=== PATIENT | male | born 1945 | race Caucasian/White ===

== ENCOUNTER 2019-05-04 10:32 | Inpatient (IN) | payer MEDICARE ==
[~2019-05-04] VITALS: Ht 185.4 cm; Wt 59.6 kg
[2019-05-04] MEDS ORDERED: GLUCOPHAGE500 MG PO (10:39)
[2019-05-04] MEDS ORDERED: LISINOPRIL10 MG PO (10:39)
[2019-05-04 11:01] VITALS: BP 148/69
[2019-05-04 11:10] LABS: ANION GAP 6.3 mmol/L (8-16); CALCIUM 7.5 mg/dL (8.5-10.1); CARBON DIOXIDE 29.3 mmol/L (21.0-32.0); CREATININE - SERUM 1.1 mg/dL (0.6-1.3); HEMATOCRIT 30.5 % (42.0-54.0); HEMOGLOBIN 9.7 g/dL (13.5-17.5); MCH 28.1 pg (26.0-34.0); MCHC 31.8 g/dL (31.0-37.0); MCV 88.4 fL (80.0-100.0); MEAN PLATELET VOLUME 9.3 fL (7.4-10.4); NEUTROPHILS 70.6 % (40-80); PLATELET COUNT 405 10x3/uL (130-400); POTASSIUM - SERUM 4.6 mmol/L (3.5-5.1); RBC 3.45 10x6/uL (4.20-6.10); RDW 14.4 % (11.5-14.5); WBC 8.8 10x3/uL (4.8-10.8)
[2019-05-04 11:21] LABS: BILIRUBIN NEGATIVE (NEGATIVE); GLUCOSE NEGATIVE (NEGATIVE); KETONE NEGATIVE (NEGATIVE); NITRITE NEGATIVE (NEGATIVE); UROBILINOGEN NORMAL (NORMAL)
[2019-05-04 11:24] LABS: BILIRUBIN - TOTAL 0.2 mg/dL (0.2-1.3); PROTEIN - SERUM 5.2 g/dL (6.4-8.2)
--- NOTE | 2019-05-04 11:39 | NUR ---
BLADDER SCAN = 63ML
[2019-05-04 12:13] VITALS: BP 131/80
[2019-05-04 13:12] VITALS: BP 140/72
[2019-05-04 15:37] VITALS: BP 145/81
--- NOTE | 2019-05-04 17:30 | NUR ---
REPORT TO JEAN PIERRE MARTINEZ.
[2019-05-04 18:36] VITALS: BP 120/70
--- NOTE | 2019-05-04 18:37 | NUR ---
PT TO ROOM FROM ER VIA WHEELCHAIR. ABLE TO STAND AND GET IN BED. ALREADY AMBULATED TO BATHROOM. BAG OF BELONGINGS IN LAP. DINNER TRAY SUPPOSED TO BE COMING.
[2019-05-04 19:26] VITALS: BMI 20.2
--- NOTE | 2019-05-04 19:30 | NUR ---
PT SITTING UP ON SIDE OF BED UPON ENTERING, AOX4. HARD OF HEARING. UPSET THAT DINNER TRAY NEVER CAME " PROMISED". GAVE PT SANDWICH TRAY, PUDDING, AND COLA. IV RIGHT FA SL, FLUSHES EASILY. 2+ BLE EDEMA AND SCROTUM EDEMATOUS. PT ENCOURAGED TO LAY FLLAT WITH SCROTUM ELEVATED. VERBALIZED UNDERSTANDING. UP AD ZHENG WITHOUT DIFFICULTY TO BATHROOM. DENIES OTHER NEEDS AT THIS TIME. CL IN REACH, WILL CTM
[2019-05-04 20:14] VITALS: BP 109/75
[2019-05-05 00:08] VITALS: BP 122/66
[2019-05-05 03:52] VITALS: BP 134/72
[2019-05-05 05:51] LABS: HEMATOCRIT 27.2 % (42.0-54.0); HEMOGLOBIN 8.7 g/dL (13.5-17.5); LYMPHOCYTES 26.1 % (15-50); MCH 28.2 pg (26.0-34.0); MEAN PLATELET VOLUME 9.5 fL (7.4-10.4); NEUTROPHILS 61.9 % (40-80); PLATELET COUNT 350 10x3/uL (130-400); RBC 3.09 10x6/uL (4.20-6.10); RDW 14.2 % (11.5-14.5)
[2019-05-05 05:53] LABS: WBC 5.4 10x3/uL (4.8-10.8)
[2019-05-05 06:04] LABS: INR 1.82 (0.85-1.17); PROTIME 20.9 SECONDS (11.6-15.0)
[2019-05-05 06:16] LABS: % SATURATION 26 % (15-55); IRON 25 ug/dl (35-150); TOTAL IRON BIND CAPACITY 93 ug/dl (260-445); UNSAT IRON BIND CAPACITY 68 ug/dl (150-375)
[2019-05-05 06:38] LABS: ALBUMIN 0.8 g/dL (3.4-5.0); ALKALINE PHOSPHATASE 147 U/L (30-120); ALT (SGPT) 24 U/L (10-68); BILIRUBIN - TOTAL 0.03 mg/dL (0.2-1.3); CALC OSMOLALITY 280 mosm/kg (275-300); CALCIUM 7.2 mg/dL (8.5-10.1); CARBON DIOXIDE 29.7 mmol/L (21.0-32.0); CHLORIDE - SERUM 106 mmol/L (98-107); CKMB 4.6 U/L (0.0-3.6); CREATINE KINASE 172 UL (21-232); CREATININE - SERUM 1.3 mg/dL (0.6-1.3); FERRITIN 18 ng/mL (3-244); GLUCOSE 132 mg/dL (74-106); MAGNESIUM - SERUM 1.3 mg/dL (1.8-2.4); PHOSPHOROUS 3.8 mg/dL (2.5-4.9); POTASSIUM - SERUM 4.2 mmol/L (3.5-5.1); PRO BNP 1071 pg/mL (0-125); PROTEIN - SERUM 4.2 g/dL (6.4-8.2); SODIUM 139 mmol/L (136-145); TROPONIN-I < 0.017 ng/mL (0.000-0.060); UREA NITROGEN 16 mg/dL (7-18); eGFR NON AFRICAN AMERICAN 58 mL/min (90-120)
--- NOTE | 2019-05-05 07:42 | NUR ---
PT RECEIVED AWAKE IN BED. ASKING IF HE IS GOING TO GET TO GO HOME TODAY. CRANKY ABOUT EVERYTHING FROM GETTING EXTRA MAG PILLS TO NO BREAKFAST YET. STATES HE IS FEELING BETTER HOWEVER.
[2019-05-05 08:08] VITALS: BP 128/65
[2019-05-05 09:40] VITALS: Ht 185.4 cm; Wt 59.6 kg
--- NOTE | 2019-05-05 11:33 | MORECARE ---
CASE MANAGEMENT DISCHARGE SUMMARY PATIENT: SHAYAN QUINTANA UNIT: [id number] ADM DATE: 05/04/19 AGE: 73 : 47 SEX: M ROOM/BED: D.2101 AUTHOR: VANE BOTELLO PHYSICIAN: REFERRING PHYSICIAN: MELONIE TODD MD DATE OF SERVICE: 05/05/19 Discharge Plan Patient Name: SHAYAN QUINTANA [facility] : 1945 Planned Disposition: Home Anticipated Discharge Date: Discharge Date: Expected LOS: Initial Reviewer: [email or web address] Initial Review Date: 05/05/2019 Generated: 05/05/19 12:32 pm Patient Name: SHAYAN QUINTANA Page [id number] at 1133 All edits/amendments must be made on the electronic document DICTATION DATE: 05/05/19 113 SPECIAL EVENTS COORDINATOR: ROSENDO 05/05/19 1132 RPT#: [id number] DC DATE: STATUS: ADM IN [facility] [address] [place] [address] END OF REPORT
--- NOTE | 2019-05-05 11:42 | MORECARE ---
CASE MANAGEMENT DISCHARGE SUMMARY PATIENT: SHAYAN QUINTANA UNIT: [id number] ADM DATE: 05/04/19 AGE: 73 : 47 SEX: M ROOM/BED: D.5319 AUTHOR: AYANDOC PHYSICIAN: REFERRING PHYSICIAN: MELONIE TODD MD DATE OF SERVICE: 05/05/19 Discharge Plan Patient Name: SHAYAN QUINTANA Facility: [facility]:[place] : 1945 Planned Disposition: Home Anticipated Discharge Date: Discharge Date: Expected LOS: Initial Reviewer: [email or web address] Initial Review Date: 05/05/2019 Generated: 05/05/19 12:41 pm Comments DCP- Discharge Planning Updated by [email or web address]: Lynda Souza on 05/05/19 10:[address] Patient Name: SHAYAN QUINTANA Admission Status: ER Accout number: [id number] Admission Date: 05-04-2019 : 1945 Admission Diagnosis: Attending: MELONIE TODD Current LOS: 1 Anticipated DC Date: Planned Disposition: Home Primary Insurance: MEDICARE A & B Discharge Planning Comments: CM met with patient to complete initial dc planning assessment. CM educated patient on the CM role and verbal consent given by patient to complete assessment. Patient lives at home alone, his address verified on face sheet. At discharge patient plans to return and feels this is a safe discharge. CM discussed availability of home health, rehab services, and medical equipment. Patient denied known discharge needs at this time. States he uses the [facility] clinic for his doctor and medications. States "[facility], and I said n, I was not driving to [place]." States he will use his Medicare benefits for this hospitalization. States he drove himself here and he will drive himself home at discharge. CM will continue to follow and will assist as needed with dc plans/needs. Clinical Nursing Instructor: Lynda Souza DCPIA - Discharge Planning Initial Assessment Updated by [email or web address]: Lynda Souza on 05/05/19 11:33 am * Is the patient Alert and Oriented? Yes * How many steps to enter\\exit or inside your home? 2/0 * [facility] * Preadmission Environment Home Alone * ADLs Independent * Equipment Glucometer * List name and contact numbers for known caregivers / representatives who currently or will assist patient after discharge: Adam Rossi - - [phone] * Verbal permission to speak to the caregivers and representatives has been obtained from the patient. Yes * Community resources currently utilized None * Additional services required to return to the preadmission environment? No * Can the patient safely return to the preadmission environment? Yes * Has this patient been hospitalized within the prior 30 days at any hospital? No Last DP export: 05/05/19 10:33 a Patient Name: SHAYAN QUINTANA Page [phone] at 1142 All edits/amendments must be made on the electronic document DICTATION DATE: 05/05/19 1141 TECHNOLOGY INTEGRATION SPECIALIST: ROSENDO 05/05/19 1141 RPT#: [id number] DC DATE: STATUS: ADM IN [facility] [address] [place] [address] END OF REPORT
[2019-05-05 12:02] VITALS: BP 102/60
--- NOTE | 2019-05-05 15:07 | NUR ---
PT RESTING QUIETLY WITH BLANKET PULLED OVER HEAD.
[2019-05-05 17:33] VITALS: BP 104/60
--- NOTE | 2019-05-05 20:15 | NUR ---
REPOR RECIEVED AND ROUNDING COMPLETE. SITTING UP IN BED A&O X4, ASKING FOR A SANDWICH AND REQUESTING TO NOT HAVE HIS BLOOD SUGAR CHECKED AT THIS TIME BECASUE HE IS EATING A SANDWICH SO IT WILL BE HIGH. RIGHT FOREARM PIV SALINE LOCKED AT THIS TIME BUT PATENT TO BEING FLUSHED. HARD OD HEARING, +1-+2 EDEMA IN BILATERAL LOWER LEGS. NO S/SX OF DISTRESS AT THIS TIME. CALL LIGHT WITHIN REACH AND BED IN LOWEST LOCKED POSITION.
[2019-05-05 21:06] VITALS: BP 92/47
[2019-05-06 00:33] VITALS: BP 91/42
[2019-05-06 04:44] LABS: HEMATOCRIT 27.1 % (42.0-54.0); HEMOGLOBIN 8.8 g/dL (13.5-17.5); LYMPHOCYTES 32.1 % (15-50); MCH 28.6 pg (26.0-34.0); MCHC 32.5 g/dL (31.0-37.0); MEAN PLATELET VOLUME 9.7 fL (7.4-10.4); NEUTROPHILS 54.7 % (40-80); PLATELET COUNT 375 10x3/uL (130-400); RBC 3.08 10x6/uL (4.20-6.10); RDW 14.7 % (11.5-14.5); WBC 5.9 10x3/uL (4.8-10.8)
--- NOTE | 2019-05-06 04:47 | NUR ---
I have reviewed this patient and I concur with the Shift Assessment completed by the Licensed Practical Nurse today this shift.
[2019-05-06 04:56] VITALS: BP 98/58
[2019-05-06 05:06] LABS: ANION GAP 4.4 mmol/L (8-16); CALCIUM 7.2 mg/dL (8.5-10.1); CREATININE - SERUM 1.3 mg/dL (0.6-1.3); MAGNESIUM - SERUM 1.6 mg/dL (1.8-2.4); PHOSPHOROUS 2.9 mg/dL (2.5-4.9); POTASSIUM - SERUM 4.4 mmol/L (3.5-5.1)
[2019-05-06 08:23] VITALS: BP 108/51
--- NOTE | 2019-05-06 08:39 | NUR ---
AM ROUNDS COMPLETED. INTRODUCED MYSELF TO PT PRIMARY RN FOR TODAYS SHIFT. SHIFT ASSESSMENT COMPLETED. PT A&O SITTING UP IN BED READING NEWSPAPER. PT IS REALLY WANTING TO BE DISCHARGED TODAY AND STATES HE IS FEELING MUCH BETTER. BILAT LEGS STILL HAVE SOME EDEMA BUT APPARENTLY ITS A LOT LESS PER PT AND NURSES REPORT. WILL DISCUSS WITH PRIMARY AND SEE ABOUT DISCHARGE PLANNING. PTS MAGNESIUM SLIGHTLY LOW, REPLACED PER ELECTROLYTE PROTOCOL. PT VERBALIZED UNDERSTANDING AND DENIES ANY CURRENT NEEDS AT THIS TIME. CL IN REACH, BED IN LOWEST, SIDE RAILS X2. WILL CTM.
--- NOTE | 2019-05-06 09:09 | NUR ---
Nutrition Consult/Follow-up: Received consult and order for calorie count. Spoke with pt following breakfast this AM. He reports that he is eating what is provided but it is not enough. Offered to provide additional protein and non-starchy vegetables; pt agreeable. Edentulous but denies difficulty chewing. Diet: Cardiac PO intake: 100% x 4 meals Wt: 138.9# (05/05); 142# (05/04) Labs noted: Ca 7.2, Mg 1.6, Glu 94, POC Glu 294 Meds noted: Protonix, MagOx, Lasix, KDur -Will monitor Glu levels; may consider cardiac carb consistent diet if Glu consistently high. Continue current diet at this time to encourage ongoing good PO intake; current BMI: 18.3 (underweight). -+additional protein & non-starchy vegetables with meals. -Monitor wt; noted daily wts ordered. -Will report on calorie count once more info becomes available. -RD following. Thanks for the consult!
--- NOTE | 2019-05-06 11:20 | NUR ---
PT SITTING UP IN BED RESTING QUIETLY. PT AMBULATED TO BR WITHOUT ANY DIFFICULTIES AND HAD A BOWEL MOVEMENT. PT NOW BACK IN BED WAITING ON LUNCH TO GET HERE. CL IN REACH, BED IN LOWEST, SIDE RAILS X2. WILL CPOC.
[2019-05-06 13:27] VITALS: BP 88/43
--- NOTE | 2019-05-06 13:33 | NUR ---
PTS BP RUNNING SLIGHTLY HYPOTENSION AT 88/43. MANUALLY CHECKED WELL AND ABOUT THE SAME READINGS. PT IS ASYMPTOMATIC SITTING UP IN BED RESTING QUIETLY WATCHING TV. WILL DISCUSS WITH PRIMARY AND CONTINUE TO MONITER IT. PT REQUESTING TRISTAN CRACKERS AND PEANUT BUTTER AND WAS PROVIDED WITH IT, NO FURTHER NEEDS AT THIS TIME. CL IN REACH.
--- NOTE | 2019-05-06 18:00 | NUR ---
PT REMAINS HYPOTENSIVE BUT ASYMPTOMATIC. DISCUSSED WITH AIDA VIRK AND NEW ORDERS OBTAINED. PT STATES HE IS FEELING GREAT AND HOPES TO DISCHARGE SOON. CL IN REACH, BED IN LOWEST, SIDE RAILS X2. WILL CPOC.
[2019-05-06 19:24] VITALS: BP 88/67
--- NOTE | 2019-05-06 19:32 | NUR ---
BEDSIDE SHIFT REPORT GIVEN. PT CHEERFUL AND DOING A BREATHING TREATMENT AT THIS TIME. BP IS COMING UP SOME. PT STATES HE IS FEELING GREAT. NO FURTHER NEEDS AT THIS TIME.
--- NOTE | 2019-05-06 20:00 | NUR ---
PATIENT RESTING IN BED WITH EYES CLOSED. NO S/S OF DISTRESS. NO C/O AT THIS TIME. PATIENT HAS IV IN RIGHT FOREARM SALINE LOC. IV IS PATENT WITHOUT REDNESS, SWELLING, OR TENDERNESS. PATIENT IS ON TELEMETRY: 77 SINUS. PATIENT HAS +1 EDEMA TO BILATERAL LEGS. PATIENT IS VERY LOWER BRULE.
[2019-05-07] VITALS: BP 88/64
--- NOTE | 2019-05-07 02:32 | NUR ---
I have reviewed this patient and I concur with the Shift Assessment completed by the Licensed Practical Nurse today this shift.
[2019-05-07 04:00] VITALS: BP 80/53
--- NOTE | 2019-05-07 04:31 | NUR ---
RELIEF CHARGE NURSE FOUND PATIENT WASHING OUT DIARRHEA FROM HIS UNDERWEAR IN THE SINK, AND PROCEEDED TO PUT ON TOP OF AIRCONDITIONER. WHEN RELIEF CHARGE NURSE OFFERED TO PUT IT IN A BAG TO KEEP THE SMELL DOWN AND SO HE WOULDN'T HAVE TO KEEP MESSING WITH IT, THE PATIENT SAID THAT HE WAS HANGING IT TO DRY. PATIENT REFUSED BRIEFS, AND WAS ADAMENT ABOUT NOT WANTING ANYTHING ELSE. PATIENT WAS TOLD THAT TO KEEP GOOD HYGIENE HE NEEDED TO NOT WEAR THE UNDERWEAR AGAIN, BECAUSE IT WOULD LEAD TO INFECTIONS AND POSSIBLE UTI. PATIENT STILL REFUSED THE BRIEFS. CALL LIGHT IN PLACE. WILL CONTINUE TO MONITOR.
[2019-05-07 05:54] LABS: BASOPHILS 0.3 % (0-2); HEMATOCRIT 24.3 % (42.0-54.0); HEMOGLOBIN 7.7 g/dL (13.5-17.5); IMMATURE GRANULOCYTES 0.1 % (0-5); LYMPHOCYTES 17.5 % (15-50); MCH 28.1 pg (26.0-34.0); MCHC 31.7 g/dL (31.0-37.0); MCV 88.7 fL (80.0-100.0); MEAN PLATELET VOLUME 9.7 fL (7.4-10.4); NEUTROPHILS 70.1 % (40-80); PLATELET COUNT 343 10x3/uL (130-400); RBC 2.74 10x6/uL (4.20-6.10); RDW 14.3 % (11.5-14.5); WBC 6.8 10x3/uL (4.8-10.8)
--- NOTE | 2019-05-07 06:00 | NUR ---
PATIENT'S BLOOD PRESSURES HAVE BEEN 80/40S ALL NIGHT AND I HELD THE 40MG LASIX AND CALLED AIDA VIRK. AIDA CONFIRMED TO HOLD LASIX, ORDERED ALBUMIN, CMP, AND ALBUMIN LAB. ORDERS HAVE BEEN PUT IN. CALL LIGHT IN PLACE. WILL CONTINUE TO MONITOR.
[2019-05-07 06:32] LABS: ANION GAP 7.3 mmol/L (8-16); CALCIUM 7.1 mg/dL (8.5-10.1); CARBON DIOXIDE 29.2 mmol/L (21.0-32.0); CREATININE - SERUM 1.6 mg/dL (0.6-1.3); MAGNESIUM - SERUM 1.7 mg/dL (1.8-2.4); PHOSPHOROUS 3.2 mg/dL (2.5-4.9); POTASSIUM - SERUM 4.5 mmol/L (3.5-5.1)
--- NOTE | 2019-05-07 07:10 | NUR ---
REPORT RECEIVED FROM HOGSHEAD PRESS OPERATOR AND PATIENT CARE ASSUMED. PATIENT LAYING IN BED AWAKE, ALERT AND ORIENTED X 4. PATIENT IS STABLE VSS AND PATIENT DENIES ANY NEEDS OR PAIN. WILL CONTINUE WITH PLAN OF CARE. SR UP X 2 BED IN LOW POSITION AND CALL LIGHT IN REACH.
[2019-05-07 07:37] LABS: ALBUMIN 0.9 g/dL (3.4-5.0); ANION GAP 8.1 mmol/L (8-16); BILIRUBIN - TOTAL 0.12 mg/dL (0.2-1.3); CALCIUM 7.1 mg/dL (8.5-10.1); CARBON DIOXIDE 27.2 mmol/L (21.0-32.0); CREATININE - SERUM 1.5 mg/dL (0.6-1.3); POTASSIUM - SERUM 4.3 mmol/L (3.5-5.1); PROTEIN - SERUM 4.3 g/dL (6.4-8.2)
[2019-05-07 09:16] VITALS: BP 99/56
--- NOTE | 2019-05-07 10:39 | NUR ---
PATIENT RESTING QUIETLY. WILL CONTINUE TO MONTIOR.
--- NOTE | 2019-05-07 12:03 | MORECARE ---
CASE MANAGEMENT DISCHARGE SUMMARY PATIENT: SHAYAN QUINTANA UNIT: [id number] ADM DATE: 05/04/19 AGE: 73 : [birth year] SEX: M ROOM/BED: D.2109 AUTHOR: AYAN,DOC PHYSICIAN: REFERRING PHYSICIAN: MELONIE TODD MD DATE OF SERVICE: 05/07/19 Discharge Plan Patient Name: SHAYAN QUINTANA Facility: [facility]:[place] : 1945 Planned Disposition: Home Anticipated Discharge Date: Discharge Date: Expected LOS: Initial Reviewer: [email or web address] Initial Review Date: 05/05/2019 Generated: 05/07/19 1:02 pm Comments DCP- Discharge Planning Updated by [email or web address]: Gabriel Romero on 05/07/19 10:[address] Patient Name: SHAYAN QUINTANA Encounter No: [id number] : 1945 Primary Insurance: MEDICARE A & B Anticipated DC Date: Planned Disposition: Home: DCP follow-up note: CM RECEIVED CALL FROM [place] AM[place]Z OF [place], [phone], WHO REQUESTED UPDATE. CM ADVISED THAT PT REFUSED [facility] TRANSFER AND IS USING HIS MEDICARE FOR THIS STAY. CM MET WITH CARE TEAM DURING INTERDISCIPLINARY TEAM MEETING, THERE WAS CONCERN OF PT'S NUTRITIONAL STATUS, CM WAS DIRECTED TO CHECK WITH PT TO ENSURE ACCESS TO FOOD AT HOME. CM MET WITH PT IN ROOM, DISCUSSED WITH PT THE NEED TO INCREASE PROTIEN IN DIET. PT REPORTS UNDERSTANDING AND STATED THAT HE HAS PLENTY OF FOOD AT HOME, HAS NO TROUBLE OBTAINING ADEQUATE FOOD; PT STATES HE GETS MORE FOOD AT HOME THAN HERE AT THE HOSPITAL. CM DISCUSSED HOME HEALTH, REHAB AND MEDICAL EQUIPMENT AVAILABILITY AND ASKED ABOUT DISCHARGE NEEDS. PT PLANS TO DISCHARGE HOME, HAS NO NEEDS ANTICIPATED AT THIS TIME. PT WILL BE DRIVING HIMSELF HOME AT DISCHARGE. IMPORTANT MESSAGE FROM MEDICARE PROVIDED AND EXPLAINED. SULLY CHURCHILL NOTIFIED. PT PLANS TO DISCHARGE HOME ALONE, HAS NO ANTICIPATED DISCHARGE NEEDS. PT WILL BE DRIVING HIMSELF HOME AT DISCHARGE. CM TO FOLLOW AND ASSIST NEEDED. Gabriel Romero, CASE MANAGEMENT DCP- Discharge Planning Updated by [email or web address]: Lynda Souza on 05/05/19 10:[address] Patient Name: SHAYAN QUINTANA Admission Status: ER Accout number: [id number] Admission Date: 05-04-2019 : 1945 Admission Diagnosis: Attending: MELONIE TODD Current LOS: 1 Anticipated DC Date: Planned Disposition: Home Primary Insurance: MEDICARE A & B Discharge Planning Comments: CM met with patient to complete initial dc planning assessment. CM educated patient on the CM role and verbal consent given by patient to complete assessment. Patient lives at home alone, his address verified on face sheet. At discharge patient plans to return and feels this is a safe discharge. CM discussed availability of home health, rehab services, and medical equipment. Patient denied known discharge needs at this time. States he uses the [facility] clinic for his doctor and medications. States "they already asked me if I wanted to go to the [place], and I said n, I was not driving to [place]." States he will use his Medicare benefits for this hospitalization. States he drove himself here and he will drive himself home at discharge. CM will continue to follow and will assist as needed with dc plans/needs. [employer] To Door [employer] Generation: Lynda Souza DCPIA - Discharge Planning Initial Assessment Updated by [email or web address]: Lynda Souza on 05/05/19 11:33 am * Is the patient Alert and Oriented? Yes * How many steps to enter\\exit or inside your home? 2/0 * [facility] * [facility]acy [facility] * Preadmission Environment Home Alone * ADLs Independent * Equipment Glucometer * List name and contact numbers for known caregivers / representatives who currently or will assist patient after discharge: Adam Flo - [facility] [phone] * Verbal permission to speak to the caregivers and representatives has been obtained from the patient. Yes * Community resources currently utilized None * Additional services required to return to the preadmission environment? No * Can the patient safely return to the preadmission environment? Yes * Has this patient been hospitalized within the prior 30 days at any hospital? No Coverage Notice Reviewer: [id number] - Gabriel Romero Notice Issued Date-Time: 05/07/2019 11:40 Notice Type: IM Discharge Notice Notice Delivered To: Patient Relationship to Patient: Bus Matron Name: Delivery Method: HAND - Hand Delivered Emma Days: Prior Verbal Notification: Recipient Understood Notice: Yes Recipient Signature: Yes Med Rec Note Co-signed by Attending: Coverage Notice Comment: Last DP export: 05/05/19 10:42 a Patient Name: SHAYAN QUINTANA Page [id number] at 1203 All edits/amendments must be made on the electronic document DICTATION DATE: 05/07/191201 CARBON CLEANER: ROSENDO 05/07/191201 RPT#: [id number] DC DATE: STATUS: ADM IN [facility] [address] [place] [address] END OF REPORT
[2019-05-07 14:18] VITALS: BP 67/42
--- NOTE | 2019-05-07 15:30 | NUR ---
ORDER RECEIVED FOR BLOOD TRANSFUSION. GAVE PATIENT INFORMED CONSENT TO RECEIVE BLOOD. PATIENT BEGAN CURSING AND STATGING THAT "WE ARE ALL JUST EXPERIMENTING ON HIM AND EVERYONE HERE IS A QUACK.' HE ALSO YELLS "HELL NO YOU'RE NOT GOING TO GIVE ME ANY GD BLOOD.' SPENT SEVERAL MINUTES WITH PATIENT ATTEMPTING TO CALM AND EDUCATE PATIENT ABOUT RISKS AD BENEFITS. PATIENT CONTINUES TO SAY HELL NO AND THAT HE MAY JUST WALK OUT.
--- NOTE | 2019-05-07 16:00 | NUR ---
DR TODD ON UNIT INFORMED OF REFUSED BLOOD AND POSSIBLE AMA. DR TODD SPOKE WITH PATIENT. NEW ORDERS RECIEVED TO CONSULT GI. PAGE SENT TO GI WILL CONTINUE TO MONITOR PATIENT . SR UP X 2 BED IN LOW POSITION AND CALL LIGHT IN REACH.
[2019-05-07 18:14] VITALS: BP 67/39
--- NOTE | 2019-05-07 19:21 | NUR ---
PT IN BED. STATES HE DOES NOT WANT TO BE DISTURBED.
[2019-05-07 20:00] VITALS: BP 93/68
[2019-05-08] VITALS (43 sets, daily range): BP systolic 78–138; BP diastolic 36–79
--- NOTE | 2019-05-08 00:45 | NUR ---
ON PT ASSESSMENT. FOUND PT EXTREMELY LETHARGIC. PCT OBTAINED BP READING WAS 66/39. NOTIFIED MEDICAL CARE EVALUATION SPECIALIST ON-CALL. HE ORDERED ALBUMIN 25MG ONE. ALSO ORDERED TO TRANSFUSE ONE UNIT OF BLOOD. PT AROUSE TO TOUCH, VERBALIZE INAAPROPRAITE WORDS. WILL CTM. CL WITHIN REACH, BED IN LOW, SR UP X2.
--- NOTE | 2019-05-08 01:55 | NUR ---
ALBUMIN INFUSING. BLOOD CONSENT OBTAINED FROM PT. 1 UNIT OF PRBCS OBTAINED FROM LAB. PT HAD A DIARRHEA BM. PCT HELPED CLEANED PT UP. PT RESTING COMFORTBALY IN BED.
--- NOTE | 2019-05-08 02:00 | NUR ---
ALBUMIN INFUSION COMPLETE. ALTHOUGH PT PULLED OUT PIV AFTER INFUSION WAS COMPLETED. NO S/S OF BLEEDING. NEW PIV 20G X1 STICK INSERTED IN LFA.
--- NOTE | 2019-05-08 02:47 | NUR ---
PRBCS INFUSING. NO S/S OF DISTRESS AT THIS TIME.
[2019-05-08 07:25] LABS: BASOPHILS 0.1 % (0-2); EOSINOPHILS 0 % (0-7); HEMATOCRIT 30.9 % (42.0-54.0); HEMOGLOBIN 9.7 g/dL (13.5-17.5); IMMATURE GRANULOCYTES 0.2 % (0-5); LYMPHOCYTES 6.6 % (15-50); MCH 27.9 pg (26.0-34.0); MCHC 31.4 g/dL (31.0-37.0); MCV 88.8 fL (80.0-100.0); MEAN PLATELET VOLUME 9.7 fL (7.4-10.4); MONOCYTES 10.9 % (2-11); NEUTROPHILS 82.2 % (40-80); PLATELET COUNT 346 10x3/uL (130-400); RBC 3.48 10x6/uL (4.20-6.10); RDW 14.8 % (11.5-14.5); WBC 13.8 10x3/uL (4.8-10.8)
[2019-05-08 07:45] LABS: ANION GAP 11.8 mmol/L (8-16); CALCIUM 7.9 mg/dL (8.5-10.1); CARBON DIOXIDE 24.2 mmol/L (21.0-32.0); CREATININE - SERUM 2.6 mg/dL (0.6-1.3); MAGNESIUM - SERUM 2.1 mg/dL (1.8-2.4); PHOSPHOROUS 4.9 mg/dL (2.5-4.9)
--- NOTE | 2019-05-08 09:23 | NUR ---
Nutrition follow-up: Pt now in ICU 2/2 hypotension Diet: Low sodium PO intake has been 100% of all meals; pt has been asking for more food. Protein foods increased. Pt is not food insecure at home Labs reviewed Wt: 139# RDN following.
--- NOTE | 2019-05-08 12:10 | NUR ---
DR TODD IN ROOM. UPDATE GIVEN. WILL CONTINUE TO MONITOR
--- NOTE | 2019-05-08 19:15 | NUR ---
PT A/OX4, ANGRY, WITH CARE, VERBALLY ABUSIVE, LUNGS CLEAR, HAS FREQUENT DIARRHEA STOOLS, RIGHT PIV INTACT WITH D5NS @ 100 CC/HR, VITALS STABLE, NO DISTRESS NOTED
--- NOTE | 2019-05-08 21:00 | NUR ---
PT RESTING QUIETLY WITH BLANKET PULLED OVER HEAD, NO DISTRESS NOTED
--- NOTE | 2019-05-08 23:00 | NUR ---
WALKED INTO ROOM TO CHANGE IV FLUIDS, PT HAD BLANKET PULLED OVER HEAD AND STATED"OH, FUCK", IVF BAG CHANGED, PT NOT DISTURBED, VITALS STABLE
[2019-05-09] VITALS (12 sets, daily range): BP systolic 90–141; BP diastolic 44–126
--- NOTE | 2019-05-09 01:00 | NUR ---
PT RESTING QUIETLY, YELLS OUT AT TIMES, C/O BEING HERE, STATES EVERYTHING WE ARE PUMPING IN HIM IS GIVING HIM DIARRHEA, NO DISTRESS NOTED
[2019-05-09 03:28] LABS: BASOPHILS 0.2 % (0-2); EOSINOPHILS 0.7 % (0-7); HEMOGLOBIN 9.2 g/dL (13.5-17.5); IMMATURE GRANULOCYTES 0.2 % (0-5); LYMPHOCYTES 11.4 % (15-50); MCHC 31.7 g/dL (31.0-37.0); MCV 88.4 fL (80.0-100.0); MEAN PLATELET VOLUME 9.8 fL (7.4-10.4); NEUTROPHILS 76.5 % (40-80); PLATELET COUNT 322 10x3/uL (130-400); RBC 3.28 10x6/uL (4.20-6.10); RDW 14.8 % (11.5-14.5)
[2019-05-09 03:48] LABS: CALCIUM 7.7 mg/dL (8.5-10.1); CARBON DIOXIDE 22.9 mmol/L (21.0-32.0); CREATININE - SERUM 1.8 mg/dL (0.6-1.3); MAGNESIUM - SERUM 1.8 mg/dL (1.8-2.4); PHOSPHOROUS 3.6 mg/dL (2.5-4.9); POTASSIUM - SERUM 3.9 mmol/L (3.5-5.1)
--- NOTE | 2019-05-09 03:50 | NUR ---
PT CONT TO YELL OUT AT TIMES, VITALS STABLE, WILL CONT TO MONITOR
--- NOTE | 2019-05-09 08:38 | NUR ---
NOTED PT HAS HAD A GI CONSULT WITH DR DANG SINCE 05/06 AND NO DOCCUMENTATION HAS BEEN NOTED THAT PHYSICIAN HAS BEEN NOTIFIED OR THAT HE HAS SEEN PT. CALLED DR DANG'S TELETYPE ADJUSTER SERVICE AND THEY STATED HE IS NOT TELETYPE ADJUSTER UNTIL SATURDAY AND THEY CANNOT LEAVE A MESSAGE TO NOTIFY THIS PHYSICIAN OF CONSULT. WILL NOTIFY NEXT SHIFT TO BE SURE THAT HE WILL BE NOTIFIED SOON HE IS BACK TELETYPE ADJUSTER.
--- NOTE | 2019-05-09 10:26 | NUR ---
NO ACUTE DISTRESS NOTED. VSS. CALL LIGHT IN REACH. WILL CONTINUE PLAN OF CARE.
--- NOTE | 2019-05-09 11:41 | NUR ---
PT IRRITABLE AND STATING HE DOES NOT WANT TO BE IN THE HOSPITAL ANYMORE AND WANTS TO GO HOME. HE STATES "I DONT WANT TO BE IN A [facility], I WANT TO GO HOME" PT NOTIFIED THAT PHYSICIANS SHOULD ROUNDS SHORTLY TO SEE PT AND THIS NURSE WILL NOTIFY PHYSICIAN OF PT CONCERNS AND REQUEST TO GO HOME. PT STATED THAT WAS OKAY. ALSO PT NOTED CONTINENT BOWEL MOVEMENT TO BEDSIDE TOILET. PT PROVIDED OWN KHUSHI CARE. BM NOTED LIQUID CHALKY IN COLOR. WILL NOTIFY PHYSICIAN. WILL CONTINUE PLAN OF CARE.
--- NOTE | 2019-05-09 13:58 | NUR ---
NO ACUTE DISTRESS NOTED. NO CHANGE. VSS. CALL LIGHT AND PERSONAL ITEMS IN REACH. WILL CONTINUE PLAN OF CARE.
--- NOTE | 2019-05-09 15:29 | NUR ---
CHG BATH PROVIDED AT THIS TIME. NOTED PT TO TRANSFER TO 2110. WILL CALL REPORT SHORTLY.
--- NOTE | 2019-05-09 15:39 | NUR ---
report called to recieving nurse. will transfer pt shortly.
--- NOTE | 2019-05-09 15:56 | NUR ---
LEFT WITH CT TO THEN TRANSFER TO 2110 AT THIS TIME VIA WHEELCHAIR. NO ACUTE DISTRESS NOTED. VSS. NO FURTHER ACTIONS.
--- NOTE | 2019-05-09 16:11 | NUR ---
RECEIVED PT TO ROOM 2110 VIA W/C IN STABLE CONDITION FROM ICU AAOX4 RESP UNLABORED SKIN W/D COLOR WNL DENIES ANY NEEDS OR DISCOMFORT
--- NOTE | 2019-05-09 19:20 | NUR ---
RECEIVED REPORT, WILL ASSUME CARE OF PT, PT IS VERY ANGRY, SAYS HE JUST WANT TO GO HOME, HE IS TRIED OF BEING HERE, BED IS LOW, SRX2, CALL LIGHT IN REACH, WILL CONTINUE PLAN OF CARE
--- NOTE | 2019-05-09 21:00 | NUR ---
[id number] COVERAGE AT THIS TIME,
[2019-05-10] VITALS: BP 124/52
--- NOTE | 2019-05-10 01:11 | NUR ---
I have reviewed this patient and I concur with the Shift Assessment completed by the Licensed Practical Nurse today this shift.
[2019-05-10 04:41] LABS: BASOPHILS 0.2 % (0-2); EOSINOPHILS 2.7 % (0-7); HEMATOCRIT 25.8 % (42.0-54.0); HEMOGLOBIN 8.2 g/dL (13.5-17.5); IMMATURE GRANULOCYTES 0.3 % (0-5); LYMPHOCYTES 20.6 % (15-50); MCHC 31.8 g/dL (31.0-37.0); MCV 88.1 fL (80.0-100.0); MEAN PLATELET VOLUME 9.9 fL (7.4-10.4); NEUTROPHILS 65.2 % (40-80); PLATELET COUNT 306 10x3/uL (130-400); RBC 2.93 10x6/uL (4.20-6.10); RDW 14.7 % (11.5-14.5)
[2019-05-10 04:52] LABS: WBC 6.4 10x3/uL (4.8-10.8)
[2019-05-10 05:01] LABS: ANION GAP 11.7 mmol/L (8-16); CALCIUM 7.8 mg/dL (8.5-10.1); CARBON DIOXIDE 21.7 mmol/L (21.0-32.0); CREATININE - SERUM 1.4 mg/dL (0.6-1.3); MAGNESIUM - SERUM 1.8 mg/dL (1.8-2.4); PHOSPHOROUS 2.9 mg/dL (2.5-4.9); POTASSIUM - SERUM 3.4 mmol/L (3.5-5.1)
[2019-05-10 09:59] VITALS: BP 146/69
--- NOTE | 2019-05-10 14:47 | NUR ---
IV LEAKING, D/C WITH CATHETER TIP INTACT. RESITED TO RIGHT FOREARM X2 ATTEMPTS
--- NOTE | 2019-05-10 16:27 | NUR ---
PT REFUSED TWICE TO HAVE SHOWER. DENIES FURTHER NEEDS AT THIS TIME
[2019-05-10 17:00] VITALS: BP 169/90
--- NOTE | 2019-05-10 17:46 | NUR ---
I have reviewed this patient and I concur with the Shift Assessment completed by the Licensed Practical Nurse today this shift.
--- NOTE | 2019-05-10 19:15 | NUR ---
RECEIVED REPORT, WILL ASSUME CARE OF PT, SLEEPING WITH HEAD COVERED UP WITH A BLANKET, NO DISTRESS NOTICED AT THIS TIME, BED IS LOW, SRX2, CALL LIGHT IN REACH, WILL CONTINUE PLAN OF CARE
[2019-05-10 20:00] VITALS: BP 148/70
--- NOTE | 2019-05-11 01:51 | NUR ---
I have reviewed this patient and I concur with the Shift Assessment completed by the Licensed Practical Nurse today this shift.
[2019-05-11 07:48] VITALS: BP 145/72
[2019-05-11 10:54] VITALS: BP 156/78
[2019-05-11 13:47] LABS: BASOPHILS 0.2 % (0-2); EOSINOPHILS 2.8 % (0-7); HEMATOCRIT 29.8 % (42.0-54.0); HEMOGLOBIN 9.2 g/dL (13.5-17.5); IMMATURE GRANULOCYTES 0.2 % (0-5); LYMPHOCYTES 24.8 % (15-50); MCH 27.8 pg (26.0-34.0); MCHC 30.9 g/dL (31.0-37.0); MONOCYTES 10.6 % (2-11); NEUTROPHILS 61.4 % (40-80); PLATELET COUNT 320 10x3/uL (130-400); RBC 3.31 10x6/uL (4.20-6.10); RDW 14.8 % (11.5-14.5); WBC 5.4 10x3/uL (4.8-10.8)
[2019-05-11 14:08] LABS: CALCIUM 7.4 mg/dL (8.5-10.1); CARBON DIOXIDE 21.9 mmol/L (21.0-32.0); CREATININE - SERUM 1.4 mg/dL (0.6-1.3); MAGNESIUM - SERUM 1.6 mg/dL (1.8-2.4); POTASSIUM - SERUM 3.9 mmol/L (3.5-5.1)
[2019-05-11] MEDS ORDERED: CREON DR 6,0001 EACH PO (16:12)
--- NOTE | 2019-05-11 16:30 | NUR ---
PT IS ABOUT TO BE DISCHARGED D/C PTS R.FA PIV WITH CATHETER TIP FULLY INTACT. PT IS GETTING DRESSED NOW. WILL BEING DISCHARGE WORKUP.
--- NOTE | 2019-05-11 16:55 | MORECARE ---
CASE MANAGEMENT DISCHARGE SUMMARY PATIENT: SHAYAN QUINTANA UNIT: [id number] ADM DATE: 05/04/19 AGE: 73 : [birth year] SEX: M ROOM/BED: D.2111 AUTHOR: AYAN,DOC PHYSICIAN: REFERRING PHYSICIAN: MELONIE TODD MD DATE OF SERVICE: 05/11/19 Discharge Plan Patient Name: SHAYAN QUINTANA Facility: [facility]:[place] : 1945 Planned Disposition: Home Anticipated Discharge Date: Discharge Date: Expected LOS: Initial Reviewer: [id number] Initial Review Date: 05/05/2019 Generated: 05/11/19 5:54 pm DCP- Discharge Planning Updated by [email or web address]: Gabriel Romero on 05/07/19 10:[address] Patient Name: SHAYAN QUINTANA Encounter No: [id number] : 1945 Primary Insurance: MEDICARE A & B Anticipated DC Date: Planned Disposition: Home: DCP follow-up note: CM RECEIVED CALL FROM NICOLE AMBRIZ OF [place], [phone], WHO REQUESTED UPDATE. CM ADVISED THAT PT REFUSED [facility] TRANSF[facility] AND IS USING HIS MEDICARE FOR THIS STAY. CM MET WITH CARE TEAM DURING INTERDISCIPLINARY TEAM MEETING, THERE WAS CONCERN OF PT'S NUTRITIONAL STATUS, CM WAS DIRECTED TO CHECK WITH PT TO ENSURE ACCESS TO FOOD AT HOME. CM MET WITH PT IN ROOM, DISCUSSED WITH PT THE NEED TO INCREASE PROTIEN IN DIET. PT REPORTS UNDERSTANDING AND STATED THAT HE HAS PLENTY OF FOOD AT HOME, HAS NO TROUBLE OBTAINING ADEQUATE FOOD; PT STATES HE GETS MORE FOOD AT HOME THAN HERE AT THE HOSPITAL. CM DISCUSSED HOME HEALTH, REHAB AND MEDICAL EQUIPMENT AVAILABILITY AND ASKED ABOUT DISCHARGE NEEDS. PT PLANS TO DISCHARGE HOME, HAS NO NEEDS ANTICIPATED AT THIS TIME. PT WILL BE DRIVING HIMSELF HOME AT DISCHARGE. IMPORTANT MESSAGE FROM MEDICARE PROVIDED AND EXPLAINED. SULLY CHURCHILL NOTIFIED. PT PLANS TO DISCHARGE HOME ALONE, HAS NO ANTICIPATED DISCHARGE NEEDS. PT WILL BE DRIVING HIMSELF HOME AT DISCHARGE. CM TO FOLLOW AND ASSIST NEEDED. Gabriel Romero, CASE MANAGEMENT DCP- Discharge Planning Updated by [email or web address]: Lynda Souza on 05/05/19 10:[address] Patient Name: SHAYAN QUINTANA Admission Status: ER Accout number: [id number] Admission Date: 05-04-2019 : 1945 Admission Diagnosis: Attending: MELONIE TODD Current LOS: 1 Anticipated DC Date: Planned Disposition: Home Primary Insurance: MEDICARE A & B Discharge Planning Comments: CM met with patient to complete initial dc planning assessment. CM educated patient on the CM role and verbal consent given by patient to complete assessment. Patient lives at home alone, his address verified on face sheet. At discharge patient plans to return and feels this is a safe discharge. CM discussed availability of home health, rehab services, and medical equipment. Patient denied known discharge needs at this time. States he uses the [facility] clinic for his doctor and medications. States "they already asked me if I wanted to go to the [place], and I said n, I was not driving to [place]." States he will use his Medicare benefits for this hospitalization. States he drove himself here and he will drive himself home at discharge. CM will continue to follow and will assist as needed with dc plans/needs. Hand Paster: Lynda Souza DCPIA - Discharge Planning Initial Assessment Updated by [email or web address]: Lynda Souza on 05/05/19 11:33 am * Is the patient Alert and Oriented? Yes * How many steps to enter\\exit or inside your home? 2/0 * PCP [place] * [place]acy [place] * Preadmission Environment Home Alone * ADLs Independent * Equipment Glucometer * List name and contact numbers for known caregivers / representatives who currently or will assist patient after discharge: Aramsathish Flo - [facility] [phone] * Verbal permission to speak to the caregivers and representatives has been obtained from the patient. Yes * Community resources currently utilized None * Additional services required to return to the preadmission environment? No * Can the patient safely return to the preadmission environment? Yes * Has this patient been hospitalized within the prior 30 days at any hospital? No External Providers External Provider: OTHER-OTHER Next Contact Date: 05/11/2019 Service Request Date: Service Type: Resolution: Reviewer: Comments: Coverage Notice Reviewer: [id number] - Gabriel Romero Notice Issued Date-Time: 05/07/2019 11:40 Notice Type: IM Discharge Notice Notice Delivered To: Patient Relationship to Patient: Butadiene Converter Helper Name: Delivery Method: HAND - Hand Delivered Emma Days: Prior Verbal Notification: Recipient Understood Notice: Yes Recipient Signature: Yes Med Rec Note Co-signed by Attending: Coverage Notice Comment: Last DP export: 05/07/19 11:03 a Patient Name: SHAYAN QUINTANA Page [id number] at 1655 All edits/amendments must be made on the electronic document DICTATION DATE: 05/11/191653 PRODUCT CONTROLLER: ROSENDO 05/11/191653 RPT#: [id number] DC DATE: STATUS: ADM IN [facility] [address] [place] [address] END OF REPORT
--- NOTE | 2019-05-11 17:03 | MORECARE ---
CASE MANAGEMENT DISCHARGE SUMMARY PATIENT: SHAYAN QUINTANA UNIT: [id number] ADM DATE: 05/04/19 AGE: 73 : 47 SEX: M ROOM/BED: D.2111 AUTHOR: AYAN,DOC PHYSICIAN: REFERRING PHYSICIAN: MELONIE TODD MD DATE OF SERVICE: 05/11/19 Discharge Plan Patient Name: SHAYAN QUINTANA Facility: [facility]:[place] : 1945 Planned Disposition: Home Anticipated Discharge Date: 05/11/19 Discharge Date: Expected LOS: 7 Initial Reviewer: [email or web address] Initial Review Date: 05/05/2019 Generated: 05/11/19 6:02 pm Comments DCP- Discharge Planning Updated by [email or web address]: Gabriel Romero on 05/11/19 4:[address] Patient Name: SHAYAN QUINTANA Encounter No: [id number] : 1945 Primary Insurance: MEDICARE A & B Anticipated DC Date: 05-11-2019 Planned Disposition: Home DCP follow-up note: CM SPOKE TO DR. SAMAYOA AND SULLY OCONNOR, WHO QUESTIONED TO MEDICARE PAYING FOR NUTRITIONAL SUPPLEMENT FOR PT. CM CALLED AND SPOKE TO GROVER WEBB GUEYDAN, , WHO INFORMED THAT MEDICARE DOES NOT PAY FOR ORAL SUPPLEMENTAL NUTRITION. CM CALLED [facility], , WAS ADVISED BY DAWOOD AT 1620 HOURS THAT THERE WAS NO ONE ABLE TO ANSWER THE QUESTION TODAY. CM NOTIFIED DR. SAMAYOA AND SULLY OCONNOR. CM NOTIFIED PT WHO WANTS TO GO HOME TODAY. PT DENIES NEED OF HOME HEALTH, REHAB SERVICES OR MEDICAL EQUIPMENT. PT REPORTS [facility] WITH [facility]. IMPORTANT MESSAGE FROM MEDICARE PROVIDED AND EXPLAINED. CM OFFERED TO FAX DISCHARGE INFORMATION AND DOCTORS NOTES TO [facility], PT ACCEPTED. CM FAXED INFORMATION TO [facility] AT [phone] TO ASSIST PT WITH VA FOLLOW UP. Gabriel Romero, CASE MANAGEMENT DCP- Discharge Planning Updated by [email or web address]: Gabriel Romero on 05/07/19 10:[address] Patient Name: SHAYAN QUINTANA Encounter No: [id number] : 1945 Primary Insurance: MEDICARE A & B Anticipated DC Date: Planned Disposition: Home: DCP follow-up note: CM RECEIVED CALL FROM NICOLE AMBRIZ OF [place], [phone], WHO REQUESTED UPDATE. CM ADVISED THAT PT REFUSED [facility] TRANSFER AND IS USING HIS MEDICARE FOR THIS STAY. CM MET WITH CARE TEAM DURING INTERDISCIPLINARY TEAM MEETING, THERE WAS CONCERN OF PT'S NUTRITIONAL STATUS, CM WAS DIRECTED TO CHECK WITH PT TO ENSURE ACCESS TO FOOD AT HOME. CM MET WITH PT IN ROOM, DISCUSSED WITH PT THE NEED TO INCREASE PROTIEN IN DIET. PT REPORTS UNDERSTANDING AND STATED THAT HE HAS PLENTY OF FOOD AT HOME, HAS NO TROUBLE OBTAINING ADEQUATE FOOD; PT STATES HE GETS MORE FOOD AT HOME THAN HERE AT THE HOSPITAL. CM DISCUSSED HOME HEALTH, REHAB AND MEDICAL EQUIPMENT AVAILABILITY AND ASKED ABOUT DISCHARGE NEEDS. PT PLANS TO DISCHARGE HOME, HAS NO NEEDS ANTICIPATED AT THIS TIME. PT WILL BE DRIVING HIMSELF HOME AT DISCHARGE. IMPORTANT MESSAGE FROM MEDICARE PROVIDED AND EXPLAINED. SULLY CHURCHILL NOTIFIED. PT PLANS TO DISCHARGE HOME ALONE, HAS NO ANTICIPATED DISCHARGE NEEDS. PT WILL BE DRIVING HIMSELF HOME AT DISCHARGE. CM TO FOLLOW AND ASSIST NEEDED. Gabriel Romero, CASE MANAGEMENT DCP- Discharge Planning Updated by [email or web address]: Lynda Souza on 05/05/19 10:[address] Patient Name: SHAYAN QUINTANA Admission Status: ER Accout number: [id number] Admission Date: 05-04-2019 : 1945 Admission Diagnosis: Attending: MELONIE TODD Current LOS: 1 Anticipated DC Date: Planned Disposition: Home Primary Insurance: MEDICARE A & B Discharge Planning Comments: CM met with patient to complete initial dc planning assessment. CM educated patient on the CM role and verbal consent given by patient to complete assessment. Patient lives at home alone, his address verified on face sheet. At discharge patient plans to return and feels this is a safe discharge. CM discussed availability of home health, rehab services, and medical equipment. Patient denied known discharge needs at this time. States he uses the [facility] clinic for his doctor and medications. States "[facility] and I said n, I was not driving to [place]." States he will use his Medicare benefits for this hospitalization. States he drove himself here and he will drive himself home at discharge. CM will continue to follow and will assist as needed with dc plans/needs. Accounting Consultant: Lynda Libby DCPIA - Discharge Planning Initial Assessment Updated by [email or web address]: Lynda Souza on 05/05/19 11:33 am * Is the patient Alert and Oriented? Yes * How many steps to enter\\exit or inside your home? 2/0 * [place] * [place] * Preadmission Environment Home Alone * ADLs Independent * Equipment Glucometer * List name and contact numbers for known caregivers / representatives who currently or will assist patient after discharge: Adam Rossi [facility] [phone] * Verbal permission to speak to the caregivers and representatives has been obtained from the patient. Yes * Community resources currently utilized None * Additional services required to return to the preadmission environment? No * Can the patient safely return to the preadmission environment? Yes * Has this patient been hospitalized within the prior 30 days at any hospital? No Coverage Notice Reviewer: HESHAM Romero Notice Issued Date-Time: 05/07/2019 11:40 Notice Type: IM Discharge Notice Notice Delivered To: Patient Relationship to Patient: Memorial Designer Name: Delivery Method: HAND - Hand Delivered Emma Days: Prior Verbal Notification: Recipient Understood Notice: Yes Recipient Signature: Yes Med Rec Note Co-signed by Attending: Coverage Notice Comment: Reviewer: HESHAM Romero Notice Issued Date-Time: 05/11/2019 16:28 Notice Type: IM Discharge Notice Notice Delivered To: Patient Relationship to Patient: Memorial Designer Name: Delivery Method: HAND - Hand Delivered Emma Days: Prior Verbal Notification: Recipient Understood Notice: Yes Recipient Signature: Yes Med Rec Note Co-signed by Attending: Coverage Notice Comment: Last DP export: 05/11/19 3:55 p Patient Name: SHAYAN QUINTANA Page [id number] at 1703 All edits/amendments must be made on the electronic document DICTATION DATE: 05/11/191701 LOAD MIXER: ROSENDO 05/11/191701 RPT#: [id number] DC DATE: STATUS: ADM IN [facility] [address] [place] [address] END OF REPORT
--- NOTE | 2019-05-11 19:03 | NUR ---
DISCHARGE TEACHING PROVIDED AND PAPERS SIGNED. PT VERBALIZED UNDERSTANDING AND DENIES ANY QUESTIONS OR CONCERNS. ALL BELONGINGS COLLECTED AND SENT WITH PT. TELEMETRY REMOVED AND GIVEN TO [employer]. WILL ESCORT PT DOWN AT THIS TIME.
[2019-05-12 05:07] LABS: IMMUNOGLOBULIN A 602 mg/dL (61-437); IMMUNOGLOBULIN G 788 mg/dL (603-1613); IMMUNOGLOBULIN M 54 mg/dL (15-143)
--- NOTE | 2019-05-12 10:31 | MORECARE ---
CASE MANAGEMENT DISCHARGE SUMMARY PATIENT: SHAYAN QUINTANA UNIT: [id number] ADM DATE: 05/04/19 AGE: 73 : 47 SEX: M ROOM/BED: D.2111 AUTHOR: AYAN,DOC PHYSICIAN: REFERRING PHYSICIAN: MELONIE TODD MD DATE OF SERVICE: 05/12/19 Discharge Plan Patient Name: SHAYAN QUINTANA Facility: [facility]:[place] : 1945 Planned Disposition: Home Anticipated Discharge Date: 05/11/19 Discharge Date: 05/11/2019 Expected LOS: 7 Initial Reviewer: [id number] Initial Review Date: 05/05/2019 Generated: 05/12/19 11:31 am Comments DCP- Discharge Planning Updated by [email or web address]: Gabriel Romero on 05/12/19 9:[address] Patient Name: SHAYAN QUINTANA Encounter No: [id number] : 1945 Primary Insurance: MEDICARE A & B Anticipated DC Date: 05-11-2019 Planned Disposition: Home DCP follow-up note: CM RECEIVED CALL FROM HANNY AMBRIZ, , [place] [facility], CM INFORMED THAT PT HAD DISCHARGED HOME YESTERDAY AND WILL BE FOLLOWING UP WITH [facility] REGARDING NEED FOR DIETARY SUPPLEMENTS DUE TO SEVERE MALABSORBTION. HANNY DEL CASTILLO REQUESTED FAX OF ADMIT AND DISCHARGE INFORMATION. CM FAXED REQUESTED INFORMATION TO HANNY AMBRIZ, . Gabriel Romero, CASE MANAGEMENT DCP- Discharge Planning Updated by [id number]: Gabriel Romero on 05/11/19 4:[address] Patient Name: SHAYAN QUINTANA Encounter No: [id number] : 1945 Primary Insurance: MEDICARE A & B Anticipated DC Date: 05-11-2019 Planned Disposition: Home DCP follow-up note: CM SPOKE TO DR. SAMAYOA AND SULLY OCONNOR, WHO QUESTIONED TO MEDICARE PAYING FOR NUTRITIONAL SUPPLEMENT FOR PT. CM CALLED AND SPOKE TO KELLE, , WHO INFORMED CM THAT MEDICARE DOES NOT PAY FOR ORAL SUPPLEMENTAL NUTRITION. CM CALLED [facility], , WAS ADVISED BY DAWOOD AT 1620 HOURS THAT THERE WAS NO ONE ABLE TO ANSWER THE QUESTION TODAY. CM NOTIFIED DR. SAMAYOA AND SULLY OCONNOR. CM NOTIFIED PT WHO WANTS TO GO HOME TODAY. PT DENIES NEED OF HOME HEALTH, REHAB SERVICES OR MEDICAL EQUIPMENT. PT REPORTS HE WILL [facility] WITH [facility]. IMPORTANT MESSAGE FROM MEDICARE PROVIDED AND EXPLAINED. CM OFFERED TO FAX DISCHARGE INFORMATION AND DOCTORS NOTES TO [facility], PT ACCEPTED. CM FAXED INFORMATION TO [facility] AT [phone] TO ASSIST PT WITH VA FOLLOW UP. Gabriel Romero, CASE MANAGEMENT DCP- Discharge Planning Updated by [email or web address]: Gabriel Romero on 05/07/19 10:[address] Patient Name: SHAYAN QUINTANA Encounter No: [id number] : 1945 Primary Insurance: MEDICARE A & B Anticipated DC Date: Planned Disposition: Home: DCP follow-up note: CM RECEIVED CALL FROM NICOLE AMBRIZ OF [place], [phone], WHO REQUESTED UPDATE. CM ADVISED THAT PT REFUSED VA TRANSFER AND IS USING HIS MEDICARE FOR THIS STAY. CM MET WITH CARE TEAM DURING INTERDISCIPLINARY TEAM MEETING, THERE WAS CONCERN OF PT'S NUTRITIONAL STATUS, CM WAS DIRECTED TO CHECK WITH PT TO ENSURE ACCESS TO FOOD AT HOME. CM MET WITH PT IN ROOM, DISCUSSED WITH PT THE NEED TO INCREASE PROTIEN IN DIET. PT REPORTS UNDERSTANDING AND STATED THAT HE HAS PLENTY OF FOOD AT HOME, HAS NO TROUBLE OBTAINING ADEQUATE FOOD; PT STATES HE GETS MORE FOOD AT HOME THAN HERE AT THE HOSPITAL. CM DISCUSSED HOME HEALTH, REHAB AND MEDICAL EQUIPMENT AVAILABILITY AND ASKED ABOUT DISCHARGE NEEDS. PT PLANS TO DISCHARGE HOME, HAS NO NEEDS ANTICIPATED AT THIS TIME. PT WILL BE DRIVING HIMSELF HOME AT DISCHARGE. IMPORTANT MESSAGE FROM MEDICARE PROVIDED AND EXPLAINED. SULLY CHURCHILL NOTIFIED. PT PLANS TO DISCHARGE HOME ALONE, HAS NO ANTICIPATED DISCHARGE NEEDS. PT WILL BE DRIVING HIMSELF HOME AT DISCHARGE. CM TO FOLLOW AND ASSIST NEEDED. Gabriel Romero, CASE MANAGEMENT DCP- Discharge Planning Updated by [email or web address]: Lynda Souza on 05/05/19 10:[address] Patient Name: SHAYAN QUINTANA Admission Status: ER Accout number: [id number] Admission Date: 05-04-2019 : 1945 Admission Diagnosis: Attending: MELONIE TODD Current LOS: 1 Anticipated DC Date: Planned Disposition: Home Primary Insurance: MEDICARE A & B Discharge Planning Comments: CM met with patient to complete initial dc planning assessment. CM educated patient on the CM role and verbal consent given by patient to complete assessment. Patient lives at home alone, his address verified on face sheet. At discharge patient plans to return and feels this is a safe discharge. CM discussed availability of home health, rehab services, and medical equipment. Patient denied known discharge needs at this time. States he uses the [facility] clinic for his doctor and medications. States "they already asked me if I wanted to go to the [place], and I said n, I was not driving to [place]." States he will use his Medicare benefits for this hospitalization. States he drove himself here and he will drive himself home at discharge. CM will continue to follow and will assist as needed with dc plans/needs. Design Editor: Lynda Souza DCPIA - Discharge Planning Initial Assessment Updated by [email or web address]: Lynda Souza on 05/05/19 11:33 am * Is the patient Alert and Oriented? Yes * How many steps to enter\\exit or inside your home? 2/0 * [facility] * Preadmission Environment Home Alone * ADLs Independent * Equipment Glucometer * List name and contact numbers for known caregivers / representatives who currently or will assist patient after discharge: Adam Flo [facility] - [phone] * Verbal permission to speak to the caregivers and representatives has been obtained from the patient. Yes * Community resources currently utilized None * Additional services required to return to the preadmission environment? No * Can the patient safely return to the preadmission environment? Yes * Has this patient been hospitalized within the prior 30 days at any hospital? No Coverage Notice Reviewer: [id number] Kang Romero Notice Issued Date-Time: 05/07/2019 11:40 Notice Type: IM Discharge Notice Notice Delivered To: Patient Relationship to Patient: Vascular Manager Name: Delivery Method: HAND - Hand Delivered Emma Days: Prior Verbal Notification: Recipient Understood Notice: Yes Recipient Signature: Yes Med Rec Note Co-signed by Attending: Coverage Notice Comment: Reviewer: [email or web address] Kang Romero Notice Issued Date-Time: 05/11/2019 16:28 Notice Type: IM Discharge Notice Notice Delivered To: Patient Relationship to Patient: Vascular Manager Name: Delivery Method: HAND - Hand Delivered Emma Days: Prior Verbal Notification: Recipient Understood Notice: Yes Recipient Signature: Yes Med Rec Note Co-signed by Attending: Coverage Notice Comment: Last DP export: 05/11/19 4:03 p Patient Name: SHAYAN QUINTANA Page [id number] at 1031 All edits/amendments must be made on the electronic document DICTATION DATE: 05/12/19 1031 SALT OPERATOR: ROSENDO 05/12/19 1031 RPT#: [id number] DC DATE:05/11/19 STATUS: DIS IN [facility] [address] [place] [address] END OF REPORT
== END 2019-05-11 19:15 | disposition home or self-care (01) | DRG 291 ==
LOC: D.ER 10:32 → D.M2 16:51 → D.ICU 05-08 06:35 → D.M2 05-09 15:55
PROVIDERS: Family Medicine; Internal Medicine Gastroenterology; ADMIT Internal Medicine Nephrology; ATTEND Internal Medicine Nephrology
DX: I50.31 Acute diastolic (congestive) heart failure (principal); E43 Unspecified severe protein-calorie malnutrition; N17.0 Acute kidney failure with tubular necrosis; L03.116 Cellulitis of left lower limb; L03.115 Cellulitis of right lower limb; E11.9 Type 2 diabetes mellitus without complications; D64.9 Anemia, unspecified; Z68.20 Body mass index [BMI] 20.0-20.9, adult; K86.81 Exocrine pancreatic insufficiency

== ENCOUNTER 2019-07-09 11:08 | Emergency (ER) | payer OTHER ==
[~2019-07-09] VITALS: Ht 185.4 cm; Wt 61.8 kg
[~2019-07-09 11:08] MED LIST: CREON DR 6,0001 EACH PO; GLUCOPHAGE500 MG PO; LISINOPRIL10 MG PO
[2019-07-09 11:17] VITALS: Ht 185.4 cm; Wt 61.8 kg
[2019-07-09 12:06] LABS: BASOPHILS 0.1 % (0-2); EOSINOPHILS 1.7 % (0-7); HEMATOCRIT 29.6 % (42.0-54.0); HEMOGLOBIN 9.5 g/dL (13.5-17.5); IMMATURE GRANULOCYTES 0.6 % (0-5); LYMPHOCYTES 15.1 % (15-50); MCH 28.2 pg (26.0-34.0); MCHC 32.1 g/dL (31.0-37.0); MCV 87.8 fL (80.0-100.0); MEAN PLATELET VOLUME 9.1 fL (7.4-10.4); MONOCYTES 12.4 % (2-11); NEUTROPHILS 70.1 % (40-80); RBC 3.37 10x6/uL (4.20-6.10); RDW 12.7 % (11.5-14.5)
[2019-07-09 12:16] LABS: INR 1.62 (0.85-1.17)
[2019-07-09 12:22] LABS: ANION GAP 7.4 mmol/L (8-16); CALCIUM 7.7 mg/dL (8.5-10.1); CARBON DIOXIDE 26.2 mmol/L (21.0-32.0); CREATININE - SERUM 1.2 mg/dL (0.6-1.3); POTASSIUM - SERUM 4.6 mmol/L (3.5-5.1)
[2019-07-09 12:24] LABS: PLATELET COUNT 474 10x3/uL (130-400)
[2019-07-09 12:28] LABS: ALBUMIN 1.3 g/dL (3.4-5.0); BILIRUBIN - TOTAL 0.16 mg/dL (0.2-1.3); PROTEIN - SERUM 5.2 g/dL (6.4-8.2)
[2019-07-09 17:08] VITALS: BP 137/65
== END 2019-07-09 17:10 | disposition other institution (70) ==
LOC: D.ER 11:08
PROVIDERS: Family Medicine
DX: K63.9 Disease of intestine, unspecified (principal); R10.9 Unspecified abdominal pain; K63.1 Perforation of intestine (nontraumatic); K56.609 Unspecified intestinal obstruction, unspecified as to partial versus complete obstruction; E11.9 Type 2 diabetes mellitus without complications